=== PATIENT | male | born 1985 | race Caucasian/White ===

== ENCOUNTER 2022-06-12 08:24 | Oncology outpatient (recurring) (ONCR) | payer MEDICAID, SELFPAY ==
[2022-06-12 10:27] LABS: Basophils # 0.1 10^3/uL (0.0-0.1); Basophils % 0.6 %; Eosinophils # 0.1 10^3/uL (0.0-0.8); Eosinophils % 1.3 %; Hematocrit 47.5 % (42.0-52.0); Hemoglobin 15.9 g/dL (11.7-16.6); Lymphocytes # 1.5 10^3/uL (0.8-4.8); Lymphocytes % 16.5 %; Mean Corpuscular HGB Conc 33.5 g/dL (30.0-36.0); Mean Corpuscular Hemoglobin 31.3 pg (28.0-34.0); Mean Corpuscular Volume 93.5 fl (80-94); Mean Platelet Volume 11.4 fL (7.4-10.4); Monocytes % 11.1 %; Neutrophils # 6.33 10^3/uL (1.8-7.7); Neutrophils % 70.1 %; Nucleated Red Blood Cells % 0 %; Platelet Count 256 10^3/cmm (130-400); Red Blood Count 5.08 10^6/uL (4.1-5.3); Red Cell Distribution Width 13.4 % (12.1-15.1)
[2022-06-12 10:29] LABS: Erythrocyte Sedimentation Rate 23 mm/hr (0-10)
[2022-06-12 10:43] LABS: LAB Peripheral Smear Sent for Review
[2022-06-12 10:57] LABS: Alanine Aminotransferase 22 U/L (0-41); Albumin Level 4.8 g/dL (3.5-5.2); Alkaline Phosphatase 93 U/L (40-130); Anion Gap 16.1 (5-19); Aspartate Amino Transferase 15 U/L (0-40); Blood Urea Nitrogen 12 mg/dL (6-20); C Reactive Protein 5.9 mg/L (0.0-4.9); Calcium 10.1 mg/dL (8.5-10.5); Carbon Dioxide 26 mmol/L (22-29); Chloride 100 mmol/L (98-107); Globulin 3.1 g/dL (1.3-4.6); Glomerular Filtration Rate 96.6 mL/min (90-130); Glucose 95 mg/dL (65-115); Lactate Dehydrogenase 156 U/L (135-225); Osmolality Calculated 286 mOsm/kg (285-295); Potassium 4.1 mmol/L (3.5-5.1); Sodium 138 mmol/L (136-145); Thyroid Stimulating Hormone 0.96 uIU/mL (0.27-4.20); Total Bilirubin 0.3 mg/dL (0.15-1.2); Total Protein 7.9 g/dL (6.6-8.7)
[2022-06-12 11:14] LABS: Iron 60 ug/dL (59-158); Percent Saturation 18.5 % (20-50); Total Iron Binding Capacity 323 mcg/dl; Unsaturated Iron Binding 263 ug/dL (112-347)
[2022-06-12 11:30] LABS: Vitamin B12 793 pg/mL (232-1245)
[2022-06-24 23:34] LABS: CALR Exon 9 Mutation NOT DETECTED (NOT DETECTED); CSF3R Exon 14/17 Mutation NOT DETECTED (NOT DETECTED); JAK2 Exon 12 Mutation NOT DETECTED (NOT DETECTED); JAK2 V617 Block Specimen ID NG; JAK2 V617 Clinical Indication NG; JAK2 V617 Mutation NOT DETECTED (NOT DETECTED); JAK2 V617 Specimen Source NG; MPL Exon 12 Mutation NOT DETECTED (NOT DETECTED)
== END 2022-06-23 23:59 | disposition home or self-care (01) ==
LOC: ONCMED 08:25
PROVIDERS: PCP Family Medicine; Visit Provider Internal Medicine Medical Oncology
DX: D72.829 Elevated white blood cell count, unspecified (principal); R71.8 Other abnormality of red blood cells; R61 Generalized hyperhidrosis; R59.0 Localized enlarged lymph nodes
CPT/HCPCS: 36415; 80053; 81219; 81270; 81339; 81403; 81479; 82607; 83540; 83550; 83615; 84443; 85025; 85651; 86140

== ENCOUNTER 2022-07-20 06:48 | Outpatient (CLI) | payer MEDICAID, SELFPAY ==
[2022-07-20] MEDS: iohexol 350 mg/mL 500 mL Btl (per mL) PO (07:50)
--- NOTE | 2022-07-20 08:00 | CT_ITS ---
WS: [id number] CT CHEST, ABDOMEN AND PELVIS WITH CONTRAST HISTORY: lymphadenopathy TECHNIQUE: Contiguous 5 mm axial imaging performed through the chest, abdomen and pelvis with IV cont rast, oral contrast has been provided. Coronal and sagittal reformats chest. Coronal and sagittal ref ormats through the abdomen and pelvis. All CT scans at [facility] use at least one of these d ose optimization techniques: automated exposure control; mA and/or kV adjustment per patient size (in cludes targeted exams where dose is matched to clinical indication); or iterative reconstruction. CONTRAST: Omnipaque 350; 100 mL IV. DLP: 642.10 mGy.cm COMPARISON: None available. Chest CT: There are a few very small micronodules in the periphery of the upper lung muller. These ar e all less than 3 mm. No mass or nodule. No pneumonia. Normal size aorta and pulmonary artery. Heart size is normal. No pericardial or pleural effusions. There are small bilateral axillary lymph nodes. Small mediastinal and hilar lymph nodes. The largest lymph nodes measure 11 mm in the hilar regions. Very nonspecific. No hiatal hernia. Abdomen CT: Liver is measuring top normal size is slightly enlarged at 18.5 cm. Mild hepatic steatosi s along the falciform ligament. Normal bile duct. Normal portal vein. Normal gallbladder and pancreas . Normal size spleen measuring 8.5 cm in length. No adrenal mass. Normal kidneys and aorta. No adenopathy or ascites. Normally distended stomach. No small bowel obstruction. The appendix is normal. No diverticular disea se or obstruction. Pelvic CT: No free fluid in the pelvis. Urinary bladder is normal. No adenopathy. 9 mm 1spondylolisthesis of L5 with bilateral spondylolysis. Well-circumscribed lytic areas within L3 and L4 are close to the endplates and probably subchondral cystic disease. CT/CT chest abdpel w/*[id number] IMPRESSION: 1. No significant lymphadenopathy in the chest, abdomen or pelvis. Largest lym ph nodes measure 11 mm in the hilar regions. 2. Minimally enlarged liver with normal size spleen. 3. No ascites. 4. No pneumonia. 5. Grade 1 L5 spondylolisthesis with spondylolysis.
[2022-07-20] MEDS: iohexol 350 mg/mL 500 mL Btl (per mL) IV (08:06)
== END 2022-07-20 06:49 | disposition home or self-care (01) ==
LOC: RAD 06:49
PROVIDERS: PCP Family Medicine; Visit Provider Internal Medicine Medical Oncology
DX: R59.0 Localized enlarged lymph nodes (principal); M43.16 Spondylolisthesis, lumbar region; M47.816 Spondylosis without myelopathy or radiculopathy, lumbar region
CPT/HCPCS: 71260; 74177; Q9967

== ENCOUNTER 2022-10-26 13:08 | Oncology outpatient (recurring) (ONCR) | payer MEDICAID, SELFPAY ==
[2022-10-26 13:23] VITALS: BP 116/73; PULSE 90; RESP 16; TEMP 37.3; O2SAT 95
[2022-10-26 13:44] LABS: Basophils # 0.1 10^3/uL (0.0-0.1); Basophils % 0.6 %; Eosinophils # 0.1 10^3/uL (0.0-0.8); Eosinophils % 1.5 %; Hematocrit 43.9 % (42.0-52.0); Hemoglobin 15.1 g/dL (11.7-16.6); Lymphocytes % 23.4 %; Mean Corpuscular HGB Conc 34.4 g/dL (30.0-36.0); Mean Corpuscular Hemoglobin 32.1 pg (28.0-34.0); Mean Corpuscular Volume 93.4 fl (80-94); Mean Platelet Volume 11.6 fL (7.4-10.4); Monocytes # 0.8 10^3/uL (0.2-0.9); Monocytes % 8.7 %; Neutrophils # 5.69 10^3/uL (1.8-7.7); Neutrophils % 65.5 %; Nucleated Red Blood Cells % 0 %; Platelet Count 240 10^3/cmm (130-400); Red Cell Distribution Width 13.2 % (12.1-15.1); White Blood Count 8.7 10^3/uL (4.0-10.0)
[2022-10-26 13:57] LABS: Erythrocyte Sedimentation Rate 10 mm/hr (0-10)
[2022-10-26 14:10] LABS: Alanine Aminotransferase 14 U/L (0-41); Albumin Level 4.4 g/dL (3.5-5.2); Alkaline Phosphatase 71 U/L (40-130); Anion Gap 10.7 (5-19); Aspartate Amino Transferase 15 U/L (0-40); Blood Urea Nitrogen 14 mg/dL (6-20); Calcium 9.2 mg/dL (8.5-10.5); Carbon Dioxide 25 mmol/L (22-29); Chloride 102 mmol/L (98-107); Ferritin 183 ng/mL (30-400); Globulin 2.6 g/dL (1.3-4.6); Glucose 95 mg/dL (65-115); Iron 124 ug/dL (59-158); Osmolality Calculated 278 mOsm/kg (285-295); Percent Saturation 45.9 % (20-50); Potassium 3.7 mmol/L (3.5-5.1); Sodium 134 mmol/L (136-145); Total Bilirubin 0.3 mg/dL (0.15-1.2); Total Iron Binding Capacity 270 mcg/dl; Unsaturated Iron Binding 146 ug/dL (112-347)
== END 2022-11-23 23:59 | disposition home or self-care (01) ==
PROVIDERS: PCP Family Medicine; Visit Provider Internal Medicine Medical Oncology
DX: D72.829 Elevated white blood cell count, unspecified (principal); D50.9 Iron deficiency anemia, unspecified
CPT/HCPCS: 36415; 80053; 82728; 83540; 83550; 85025; 85651; 86140

== ENCOUNTER → 2024-03-02 08:56 | Outpatient (BNVA) | payer MEDICAID, SELFPAY | PROVIDERS: PCP Family Medicine; Visit Provider Podiatrist Foot & Ankle Surgery | DX: S92.911A Unspecified fracture of right toe(s), initial encounter for closed fracture (principal); W22.03XA Walked into furniture, initial encounter | CPT/HCPCS: 73630 ==

== ENCOUNTER 2025-01-01 12:00 | Outpatient (CLI) | payer MEDICAID, SELFPAY ==
--- NOTE | 2025-01-01 12:06 | MR_ITS ---
WS: [id number] MRI BRAIN WITH AND WITHOUT CONTRAST HISTORY: PRIMARY THUNDERCLAP HEADACHE COMPARISON: None available. TECHNIQUE: Multiplanar imaging performed through the brain with MultiHance ml's IV. No acute infarcts are seen. Jimenez-white matter differentiation is well preserved. There are a few very small scattered subcortical T2 foci in the frontal lobe white matter. Very nonspecific. No susceptibility artifacts or prior lacunar infarcts. Ventricles and extra-axial spaces are normal. Mildly prominent frannie cisterna magna. Clivus and pituitary gland are normal. Visualized posterior fossa and brainstem are also normal. Postcontrast images are negative for masses or vascular malformations. Dural venous sinuses are normal. Paranasal sinuses: Well aerated with no significant disease. Mastoid air cells: Normal. Calvarium and scalp: Normal. MR/MR head wo/w con [id number] IMPRESSION: 1. No acute infarct, hemorrhage or enhancing mass. 2. Minimal small vessel ischemic disease in the subcortical white matter of th e frontal lobes. 3. No prior infarcts. 4. No hydrocephalus.
[2025-01-01] MEDS: gadobenate dimeglumine 20 mL vial 15 ML IV (12:55)
== END 2025-01-01 12:01 | disposition home or self-care (01) ==
LOC: RAD 12:02
PROVIDERS: PCP Family Medicine; Visit Provider Registered Nurse
DX: I67.82 Cerebral ischemia (principal); Q04.8 Other specified congenital malformations of brain; G44.53 Primary thunderclap headache
CPT/HCPCS: 70553